=== PATIENT | female | born 1985 | race Caucasian/White ===

== ENCOUNTER 2019-01-01 10:43 | Day surgery (SDC) | payer OTHER, SELFPAY ==
--- NOTE | 2018-12-30 14:59 | HP.PCM_ITS ---
History and Physical Date of Admission: 01/01/19 HPI: The patient is a 33 year old female presenting for pre-operative visit. She is scheduled for suction dilation and curettage, for 12 week size missed on 01/01/19. Procedure discussed along with risks, benefits and complications. Other alternatives discussed for management. PAST MEDICAL HISTORY Diagnosis Date ? Anemia during in third trimester 08/13/2016 ? Blood in stool ? Female infertility ? fracture 2001 collarbone fx during H.S. sports ? Infertility, female ? Screening 10/16/13 screen neg for Fragile X syndrome ? Screening 10/16/13 negative screening for SMA spinal muscular atrophy ? Screening for cystic fibrosis 10/16/13 negative ? Snoring PAST SURGICAL HISTORY Procedure Laterality Date ? COLONOSCOP W/ OR W/O [facility] SPEC 09/08/2017 repeat 1 year ? COLONOSCOP W/ OR W/O [facility] SPEC 07/27/2018 Colonoscopy ? TX INGROWN TOENAIL 2000 right foot No current outpatient medications on file. No current facility-administered medications for this visit. ALLERGIES: Patient has no known allergies. PERSONAL HISTORY: Social History Socioeconomic History Marital status: Spouse name: Keenan Number of children: 1 Years of education: 14 Highest education level: Not on file Social Needs Financial resource strain: Not on file Food insecurity - worry: Not on file Food insecurity - inability: Not on file Transportation needs - medical: Not on file Transportation needs - non-medical: Not on file Occupational History Occupation: [employer] Employer: [employer] Tobacco Use Smoking status: Never Smoker Smokeless tobacco: Never Used Substance and Sexual Activity Alcohol use: Yes Comment: occasionally, not while Drug use: No Sexual activity: Yes Partners: Male control/protection: None Other Topics Concerns: Not on file Social History Narrative Not on file FAMILY HISTORY: FAMILY HISTORY Problem Relation Age of Onset ? Hypertension Mother ? Lipids Mother ? other (lupus) Mother ? Stroke Maternal Grandfather ? Heart Maternal Grandfather ? Breast Cancer Paternal Grandmother ? other (Other) Paternal Aunt lumpectomy of the breast REVIEW OF SYMPTOMS: GENERAL: denies fevers or chills ENDOCRINOLOGY: has not been on steroids Cardiology : denies palpitations or chest pain Respiratory: denies SOB or cough Hematology: denies history of prolonged bleeding or easy bruising or VTE Allergy: Denies history of personal or family history of allergy to anesthesia PHYSICAL EXAMINATION: VITALS: Blood pressure 110/58, weight 137 lb (62.1 kg), last menstrual period 10/03/2018, currently . GENERAL: The patient is well nourished, well hydrated in no acute distress. , The patient is oriented to time, place, and person. NECK: Supple. No lynphadenopathy, normal thyroid, no thyromegaly. LUNGS: Clear to auscultation bilaterally. no wheezes, rhonchi or rales HEART: Regular rate and rhythm, Normal heart sounds and No murmurs or gallops GENITALIA: Normal external genitalia, Urethral meatus normal, Bladder nontender, normal vagina and normal vaginal tone, normal cervix, normal uterus, size and consistency, normal adnexa without masses or tenderness and perineum WNL TVUS done, CRL of fetus is 12 w 0d, no cardiac activity visualized or via color or doppler flow on US. Transabdominal and transvaginal imaging done IMPRESSION: .11w 4 d w/ missed spontaneous PLAN: The risks/benefits/alternatives and personal involved for the planned suction D&C were reviewed with the patient. Her questions were answered to her satisfaction and she desires to proceed. Consent was signed. I reviewed with her postop instructions and expectations. I d/w her options of medical and surgical management, however, w/ CRL c/w 12 w, not a good office candidate and d/w her high risk of needing emergent D&C if managed expectantly or I have reviewed and updated past medical and surgical history, medications and allergies This H&P done in my office 12/29/18 Cara Bermudez MD No clinically relevant updates since entered
--- NOTE | 2019-01-01 | POC_PTH ---
PATIENT: SUE LEON [place] [facility] [place][id number] AGE/SX: 33/F ROOM: RE01/01/[address]: Dr. Cara Bermudez MD : 1985 BED: DIS: 01/01/2019 SPEC #: [id number] RECD: 01/01/19 14:36 STATUS: JUANA ARIELLE #: [id number] NOLAN: 01/01/19 00:[address]: Cara Bermudez DEPT: SURGICAL PATHOLOGY RECD BY: Kaleb Tinajero ENTERED: 01/04/19 13:04 SP TYPE: PROD CONC OTHR DR: No Primary Care Phys Tissues: Product of conception, NOS Procedures: Surgery Specimen Level IV HEADER OPERATION: Dilation and curettage, suction PRE-OP DIAGNOSIS: Missed AB TISSUE SUBMITTED: Products of conception MICROSCOPIC DIAGNOSIS Endometrium, curettage: Chorionic villi, decidualized stroma and trophoblastic cells consistent with products of conception. AM:simona 01/05/19 MICROSCOPIC DESCRIPTION Slides are reviewed. GROSS DESCRIPTION Received in fixative is one container labeled with the patient's name and designated products of conception. The specimen consists of light to dark mariscal soft tissue measuring in aggregate 11 x 9 x 2 cm. parts are not grossly recognized. Filler Shredding Machine Loader portions are submitted in one cassette. / AM:rg 01/04/19 TC:5 CPT: 67981
[2019-01-01 11:53] VITALS: BP 109/77; PULSE 65; RESP 18; TEMP 36.5; O2SAT 99; BMI 21.6
[2019-01-01 12:21] LABS: Hematocrit 36.6 % (37-47); Hemoglobin 12.5 g/dl (12.0-15.0); Mean Corp Hgb Conc 34.2 g/gl (32-36); Mean Corpuscular Hgb 28.9 pg (27.0-32.0); Mean Corpuscular Volume 84.7 fL (81-99); Mean Platelet Vol. 9.8 fl (6.2-12.0); Platelet Count 208 K/mm3 (150-450); RBC Distribution Width CV 12.7 % (11.6-14.6); Red Blood Count 4.32 M/mm3 (4.2-5.4); White Blood Count 6.9 K/mm3 (4.4-11.0)
[2019-01-01 12:32] LABS: Scan Indicated on CBC? Y/N NO
--- NOTE | 2019-01-01 12:50 | DCINST_ITS ---
Discharge Diet: No Restrictions Discharge Activity: Return to Normal Activity, May Shower, May Take a Tub Bath - in 1 weeks. Return to work on:: 01/04/19 - as tolerated May shower in (days): 1 May resume sexual activity in: 1 week Call your doctor if your incision/area has: Continuous Slow Oozing, Sudden Increased Bleeding, Foul Smelling Discharge Call your doctor if you observe: Fever of 101 or Higher Allergies/Adverse Reactions: Allergies No Known Allergies Allergy (Verified 01/01/19 11:52) Medications to take at Discharge Ibuprofen [Motrin] 600 mg PO Q6H PRN #30 tablet 01/01/19 The following prescriptions were given: Ibuprofen [Motrin] 600 mg PO Q6H PRN #30 tablet PRN Reason: Pain Primary Care Physician: Care Physician,No Primary [Primary Care Provider] - Test Results: Test results from this visit will be discussed in further detail at your follow- up appointment, if applicable. Please Follow Up With: Cara Bermudez MD - [phone] When: 4 weeks or as needed
[2019-01-01 13:15] VITALS: BP 101/62; BP 109/77; PULSE 98; RESP 16; TEMP 36.3; O2SAT 100
--- NOTE | 2019-01-01 13:15 | OP.PCM_ITS ---
Report of Operation Date of Procedure: 01/01/19 Pre-Operative Diagnosis: week missed Post-Operative Diagnosis: same Surgery/Procedure Performed:: Suction D&C Description of Surgical Findings:: normal cervix and vagina, 12 week size anteverted uterus performance improvement manager: None Type of Anesthesia:: MAC/Supplemental/Local Anesthesiologist: Patsy Farrar Special Medications: none Specimen's removed: Products of conception Drains: None Estimated Blood Loss (mL): 30 Fluids Replaced: 200cc Description of Procedure: The patient was taken to the operating room where she was prepped and draped in a dorsolithotomy position. A bimanual examination was done and confirmed the uterus to be 12 weeks size and anteverted. A weighted speculum was placed in the vagina and the anterior lip of the cervix was grasped with a single-tooth tenaculum. The cervix was dilated serially. A 12 mm suction curette was placed to the uterine fundus and the suction was created. Several passes were made to remove clots and products of conception. When minimal tissue was returning a gentle sharp curettage was then done of the uterine cavity. The uterine cry was appreciated and another gentle pass was made with the suction curette. At this point there is no active bleeding from the uterus and minimal blood and no further products of conception were removed. A brief transabdominal ultrasound was performed confirming an empty uterus with a bright endometrial stripe. The tenaculum was removed off the cervix and hemostasis of the tenaculum site was assured. Made of the instruments removed from the vagina and the vaginal sweep was completed by me. Sponge and needle counts were correct. The patient was taken to the recovery room in stable condition. Findings: 12 week size uterus, normal cervix and vagina. Specimen: Products of conception Grafts/Implants Used: None - Complications None - Admit VTE Documentation VTE Present on Admission: No VTE Mechan Device Prophylaxis: SCD's VTE Pharm Prophylaxis ordered?: No Reason prophylaxis not ordered:: Procedure Not Indicated
[2019-01-01 13:20] VITALS: BP 108/83; BP 109/77; PULSE 72; RESP 16; O2SAT 100
[2019-01-01 13:25] VITALS: BP 103/77; BP 109/77; PULSE 80; RESP 16; O2SAT 100
[2019-01-01 13:30] VITALS: BP 102/72; BP 109/77; PULSE 70; RESP 16; TEMP 36.3; O2SAT 100
[2019-01-01 14:05] VITALS: BP 109/77
== END 2019-01-01 14:06 | disposition home or self-care (01) ==
LOC: SDC 10:44 → AC 13:19
PROVIDERS: Referring Provider Obstetrics & Gynecology; Visit Provider Obstetrics & Gynecology
PROC: (CPT 59820; principal; 2019-01-01 12:00)
DX: O02.1 Missed abortion (principal)
CPT/HCPCS: 59820; 85027; 88305; J7120; J2405

== ENCOUNTER 2021-10-08 06:45 | Inpatient (IN) | payer OTHER, SELFPAY ==
[2021-10-08] VITALS (43 sets, daily range): BP systolic 90–149; BP diastolic 57–78; PULSE 61–120; RESP 16–18; TEMP 36.3–36.8; O2SAT 82–100; BMI 28.1
[2021-10-08] MEDS: Lactated Ringers 1,000 ML 50 ML IV (07:15)
[2021-10-08 07:34] LABS: Absolute Lymphocyte Count 0.82 X10^3/uL (0.83-4.51); Absolute Neutrophil Count 7.9 X10^3/uL (2.0-7.7); Basophil# 0.02 X10^3/uL; Basophil% 0.2 % (0-1); Eosinophil# 0.01 X10^3/uL; Eosinophils% 0.1 % (0-5); Hemoglobin 10.1 g/dL (12.0-15.0); Lymphocyte # 0.82 X10^3/ul (0.83-4.51); Lymphocyte % 8.9 % (19-41); Mean Corp Hgb Conc 31.6 g/dL (32-36); Mean Corpuscular Hgb 25.3 pg (27.0-32.0); Mean Platelet Vol. 10.6 fl (6.2-12.0); Monocyte# 0.44 X10^3/uL; Monocyte% 4.8 % (0-10); NRBC Flagged by Analyzer 0 % (0-5); Neutrophil # 7.87 X10^3/uL (2.7-7.7); Neutrophil % 85.3 % (47-70); Platelet Count 224 K/mm3 (150-450); RBC Distribution Width CV 18.9 % (11.6-14.6); RBC Distribution Width SD 54.5 fl (35.1-43.9); White Blood Count 9.2 K/mm3 (4.4-11.0)
[2021-10-08] MEDS: Oxytocin 30 units/NS 500 ml 30 UNITS/500 ML IV.SOLN 334 UNITS IV (07:41)
--- NOTE | 2021-10-08 07:57 | HP.PCM.OB_ITS ---
HPI - General General Date of Admission: 10/08/21 HPI Narrative SUE LEON, is a 35 F who presents at 40 weeks in active labor. . complicated by AMA, anemia, positive GBS Maternal Data Information Final POLLY: 10/08/21 Final POLLY Source: US <20 weeks [facility] Home Medications iron 10/08/21 [History Last Taken 10/06/21 21:00] Allergy/AdvReac Type Severity Reaction Status Date / Time No Known Allergies Allergy Verified 10/08/21 07:00 Surgical History (Updated 10/08/21 @ 08:44 by Sunny Saunders) History of surgery Social History Smoking Status: Never smoker History Elective abortions Hx Para 1 Spontaneous abortions Hx # Term Pregnancies Ectopic pregnancies Hx # Pregnancies Multiple births # of living children Vital Signs Vital Signs Vital Signs: 10/08/21 07:03 10/08/21 07:04 Temperature 97.4 F L Temperature Source Temporal Pulse Rate 68 Blood Pressure 114/78 BP Systolic 114 BP Diastolic 78 Pulse Ox 100 Weight Weight: 169 lb Body Mass Index (BMI) 28.1 Labs Labs Labs: Blood Type O POSITIVE Antibody Screen NEGATIVE Hct 32.0 % (37-47) L Hgb 10.1 g/dL (12.0-15.0) L Rhogam given: No Rubella Immune O positive RPR negative HBsAG negative Hep C negative HIV negative GBS positive Assessment & Plan (1) Advanced maternal age (AMA) in : (2) Active labor at term: (3) Positive GBS test: PLAN: 1) Admit to labor and delivery 2) Routine labs 3) GBS prophylaxis 4) Planning unmedicated 5) notified of patient in labor and collaborative physician.
--- NOTE | 2021-10-08 07:58 | OP.PCM_ITS ---
Maternal Data Information POLLY Calculator Estimated Delivery Date Method Current WG Current Estimate 10/08/21 Manual 40w 3d 40 weeks no t 40 weeks 3 days for delivery Vaginal Delivery Maternal Presentation Maternal Presentation: Active Labor Operative Information Date of Procedure: 10/08/21 Pre-Operative Diagnosis: Active Labor Post-Operative Diagnosis: Surgery / Procedure Performed: Spontaneous Vaginal Delivery Type of Anesthesia: Local with 1% Lidocaine Estimated Blood Loss: 350 ml Time of Delivery: 07:40 Findings Description of Procedure: Presented in active labor to hospital. SROM and cervical exam 8cm. Strong urge to push, unmedicated. of viable male over first degree perineal laceration. APGARS 8,9. Infant head delivered and placed on maternal abdomen, Mouth and nares suctioned for secretions, strong cry. Pitocin started for active 3rd stage management. Cord clamped and cut after pulsations ceased. Placenta delivered spontaneously intact, 3vessel cord. Perineum inspected and revealed small first degree perineal laceration. Repaired with 3.0 vicryl rapide. EBL 350ml. Vaginal sweep completed by me. Sponge and instrument count correct. Mom and baby stable. Family bonding well. notified of delivery. Presentation: Vertex and LAXMI Amniotic Membrane Rupture Type: Spontaneous Amniotic Fluid Description: Clear Placental Delivery Description: Spontaneous Placenta Disposition: [facility] Cord Vessel Description: 3 Vessels Cord Entanglement: None Infant A Gender: Male (1 minute): 8 (5 minute): 9 Delayed Cord Clamping: Yes Post Vaginal Delivery Medications Given After Delivery: IV Pitocin Episiotomy Description: None Laceration: 1st degree Complication Complications: None
[2021-10-08] MEDS: Ibuprofen 600 MG Tablet PO ×2 (09:40→23:47)
[2021-10-08] MEDS: Benzocaine/Lanolin/Aloe Vera 1 SPRAY EACH TOPICAL (09:40)
[2021-10-08] MEDS: 0.9% Saline Lock 10 ML Syringe IV (10:13)
[2021-10-09] VITALS (7 sets, daily range): BP systolic 103–116; BP diastolic 60–64; PULSE 67–89; RESP 14–16; TEMP 36.3–36.8; O2SAT 97–98
--- NOTE | 2021-10-09 08:35 | PCM.PN.OB ---
Subjective Subjective Patient seen at bedside. Feeling good. Ambulating and voiding without difficulty. Breast feeding with minimal support. Lochia decreased. Desires discharge home today. Objective Data Objective Data Vital Signs: Vital Signs Temp Pulse Resp BP Pulse Ox 97.9 F 67 14 103/60 98 10/09/21 04:10 10/09/21 04:11 10/09/21 04:10 10/09/21 04:11 10/08/21 16:28 Oxygen Delivery Method Room Air Weight: 169 lb Body Mass Index (BMI) 28.1 Intake & Output: Intake and Output for Last 24 Hours 10/07/21 10/08/21 10/09/21 23:59 23:59 23:59 Intake Total 525 / 525 Output Total 700 / 700 Balance -175 / -175 Lab / Micro Data Result Diagrams: 10/08/21 07:15 Labs: Laboratory Results - last 24 hr 10/08/21 07:15: Blood Type O POSITIVE, Antibody Screen NEGATIVE Micro: Microbiology 10/08/21 09:45 Nasal Secretion SARS-CoV-2 Antigen (Rapid) - Final ROS Eyes Eyes: Denies blurry vision, change in vision or spots in vision ENT HEENT: Denies dizziness or headache(s) Cardiovascular Cardiovascular: Denies abdominal pain, chest pain or dyspnea Respiratory/Chest Respiratory/Chest: Denies cough, dyspnea, shortness of breath at rest or shortness of breath with exertion Gastrointestinal Gastrointestinal: Denies abdominal pain, diarrhea or vomiting Genitourinary Genitourinary: Denies change in urinary stream, difficulty urinating or dysuria Musculoskeletal Musculoskeletal: Reports none Integumentary Integumentary: Denies rash Neurologic Neurologic: Denies dizziness, headache(s), memory loss or weakness Psychiatric Psychiatric: Reports none Assessment & Plan (1) (spontaneous vaginal delivery): (2) Care and examination of lactating mother: PLAN: PPD 2 Routine care support D/C home with follow up in office
--- NOTE | 2021-10-09 08:37 | PCM.DC ---
Discharge Instructions Diet Discharge Diet: No restrictions Activity May resume sexual activity in: 6-8 weeks Weight Bearing Status: Weight bearing as tolerated Dressing / Incision Call your doctor if you observe: Fever of 101 or Higher, Inability to urinate, Using more than 1 pad per hour, Shortness of breath, Chest pain, Calf discomfort and Uncontrolled pain Follow Up Care When: 2 weeks virtual visit/ 6 weeks in office Test Results: Test results from this visit will be discussed in further detail at your follow-up appointment, if applicable. Discharge Plan Admission Admit Date/Time: 10/08/21 06:45 Primary Reason for Your Visit: Labor and delivery Attending Provider: Kim Garcia Primary Care Provider: Care Physician,No Primary Discharge Orders/Prescriptions Prescriptions: No Action iron RF: 0 Referrals / Follow Up: Care Physician,No Primary [Primary Care Provider] - Disposition Disposition (needs filled in before D/C Order can be placed): Home, Self Care
== END 2021-10-09 19:45 | disposition home or self-care (01) | DRG 807 ==
LOC: WPOUT 07:05 → WP 07:46
PROVIDERS: Admitting Provider Advanced Practice Midwife; Visit Provider Advanced Practice Midwife
DX: O99.824 Streptococcus B carrier state complicating childbirth (principal); Z37.0 Single live birth; D64.9 Anemia, unspecified; O70.0 First degree perineal laceration during delivery; O99.02 Anemia complicating childbirth; Z3A.40 40 weeks gestation of pregnancy; Z79.899 Other long term (current) drug therapy
CPT/HCPCS: 59050; 85025; 86850; 86900; 86901; 87426; 99218; J7120; A4216; G0378